=== PATIENT | female | born 1995 | race Caucasian/White ===

== ENCOUNTER 2019-10-17 19:10 | Observation (INO) | payer SELFPAY ==
--- NOTE | 2019-10-17 19:50 | ER Document Report ---
ED Medical Screen (RME) - General Chief Complaint: Back Pain Stated Complaint: BACK MUSCLE PAIN Time Seen by Provider: 10/17/19 19:43 Mode of Arrival: Ambulatory Information source: Patient Notes: 23-year-old female presented to ED for complaint of right upper back and abdomen pain. She states it started a couple days ago but is worse today. She states is worse whenever she eats or drinks. She states when she eats or drinks it makes her to get very nauseated. She is taking testosterone and took an injection today for gender transition process. She does not smoke drink or use any drugs. Last menstrual period was September 25. No past medical history. I have greeted and performed a rapid initial assessment of this patient. A comprehensive ED assessment and evaluation of the patient, analysis of test results and completion of medical decision making process will be conducted by an additional ED providers. TRAVEL OUTSIDE OF THE [place] IN LAST 30 DAYS: No - Related Data Allergies/Adverse Reactions: No Known Allergies Allergy (Unverified 12/18/15 20:38) Physical Exam - Vital signs Vitals: Temp Pulse Resp BP Pulse Ox 99.0 F 64 16 127/70 H 99 10/17/19 19:22 10/17/19 19:22 10/17/19 19:22 10/17/19 19:22 10/17/19 19:22 Course - Vital Signs Vital signs: Temp Pulse Resp BP Pulse Ox 99.0 F 64 16 127/70 H 99 10/17/19 19:22 10/17/19 19:22 10/17/19 19:22 10/17/19 19:22 10/17/19 19:22
[2019-10-17 20:26] LABS: ABSOLUTE BASOPHILS # (AUTO) 0.1 10^3/uL (0.0-0.2); ABSOLUTE EOSINOPHILS # (AUTO) 0.1 10^3/uL (0.0-0.6); ABSOLUTE LYMPHOCYTES (AUTO) 1.1 10^3/uL (0.5-4.7); ABSOLUTE MONOCYTES (AUTO) 0.6 10^3/uL (0.1-1.4); ABSOLUTE NEUT (AUTO) 6.1 10^3/uL (1.7-8.2); BASOPHILS % (AUTO) 0.7 % (0-2); EOSINOPHILS % (AUTO) 0.6 % (0-6); HEMATOCRIT 43.3 % (36.0-47.0); HEMOGLOBIN 14.3 g/dL (12.0-15.5); LYMPHOCYTES % (AUTO) 13.6 % (13-45); MEAN CORPUSCULAR HEMOGLOBIN 27.8 pg (27.0-33.4); MEAN CORPUSCULAR HGB CONC 33.1 g/dL (32.0-36.0); MEAN CORPUSCULAR VOLUME 84 fl (80-97); MONOCYTES % (AUTO) 7.7 % (3-13); PLATELET COUNT 149 10^3/uL (150-450); RED BLOOD COUNT 5.15 10^6/uL (3.72-5.28); RED CELL DISTRIBUTION WIDTH 15.7 % (11.5-14.0); SEGMENTED NEUTROPHILS % (AUTO) 77.4 % (42-78); TOTAL CELLS COUNTED % (AUTO) 100 %; WHITE BLOOD COUNT 7.9 10^3/uL (4.0-10.5)
[2019-10-17 20:39] LABS: APPEARANCE,URINE CLEAR; BILIRUBIN,URINE NEGATIVE (NEGATIVE); COLOR,URINE AMBER; GLUCOSE, URINE NEGATIVE (NEGATIVE); KETONES,URINE NEGATIVE (NEGATIVE); LEUKOCYTE ESTERASE,URINE TRACE (NEGATIVE); NITRITE,URINE NEGATIVE (NEGATIVE); PROTEIN,URINE 100 mg/dL (NEGATIVE); URINE SPECIFIC GRAVITY 1.025
[2019-10-17 20:47] LABS: ALBUMIN 4.9 g/dL (3.5-5.0); ALKALINE PHOSPHATASE 113 U/L (38-126); ANION GAP 8 (5-19); ASPARTATE AMINO TRANSFERASE 265 U/L (14-36); BILIRUBIN,DIRECT 0.5 mg/dL (0.0-0.4); BILIRUBIN,TOTAL 1.2 mg/dL (0.2-1.3); BLOOD UREA NITROGEN 6 mg/dL (7-20); CALCIUM 9.6 mg/dL (8.4-10.2); CARBON DIOXIDE 27 mmol/L (22-30); CHLORIDE 104 mmol/L (98-107); CREATINE KINASE 139 U/L (30-135); GLUCOSE 98 mg/dL (75-110); TOTAL PROTEIN 8.3 g/dL (6.3-8.2)
--- NOTE | 2019-10-18 04:10 | RADIOLOGY REPORT (SQ) ---
Ultrasound of the right upper quadrant of the abdomen: 10/18/2019 3:08 AM CDT Technique: Multiple grayscale color Doppler images of the right upper quadrant of the abdomen were obtained. Comparison: None available History: 23-year old patient with right upper quadrant abdominal pain. Findings: The visualized portions of the hepatic parenchyma appear normal. There is normal directional flow seen within the main portal vein. Cholelithiasis with nonspecific gallbladder wall thickening is seen. Sonographic Hinojosa's sign was negative. The common duct measures 2.0 mm. The right kidney measures up to 10.9 cm in length. The right kidney demonstrates normal cortical echogenicity with no evidence to suggest hydronephrosis. The visualized portions of the IVC, abdominal aorta, and pancreatic head appear normal. No free intraperitoneal fluid is seen. Impression: There is nonspecific gallbladder wall thickening with cholelithiasis. Sonographic Hinojosa's sign was negative.
--- NOTE | 2019-10-18 04:11 | ER Document Report ---
ED General - General Chief Complaint: Abdominal Pain Stated Complaint: BACK MUSCLE PAIN Time Seen by Provider: 10/17/19 19:43 Mode of Arrival: Ambulatory TRAVEL OUTSIDE OF THE [place] IN LAST 30 DAYS: No - HPI Notes: 23-year-old transgender male (chosen name is Kash) on testosterone therapy with any other significant medical history presents with approximately 1 week of gradual onset worsening severe right upper quadrant pain radiating to right back precipitated by eating especially fatty foods but now brought on by eating any food or drinking water causes severe pain for hours. Pain associated with several episodes of nonbloody nonbilious emesis. Patient denies any fever, lower abdominal pain, trauma, urinary symptoms, vaginal symptoms, prior episodes prior to this week, prior medical eval - Related Data Allergies/Adverse Reactions: No Known Allergies Allergy (Unverified 12/18/15 20:38) Home Medications: testerone Past Medical History - General Information source: Patient - Social History Smoking Status: Never Smoker Family History: Reviewed & Not Pertinent Patient has homicidal ideation: No Review of Systems - Review of Systems Notes: REVIEW OF SYSTEMS: CONSTITUTIONAL : Denies fever, chills, or sweats. EENT: Denies recent cold/sinus symptoms, denies throat pain CARDIOVASCULAR: Denies chest pain, LATIA RESPIRATORY: Denies cough, denies shortness of breath. GASTROINTESTINAL: +abdominal pain, +nausea/vomiting. GENITOURINARY: Denies difficulty urinating, painful urination. FEMALE GENITOURINARY: Denies abnormal vaginal bleeding, vaginal discharge. MUSCULOSKELETAL: Denies neck pain, back pain. SKIN: Denies rash or skin lesions. HEMATOLOGIC : Denies easy bruising or bleeding. LYMPHATIC: Denies swollen, enlarged glands. NEUROLOGICAL: Denies headache, denies change in gait. PSYCHIATRIC: Denies anxiety or stress or depression. Physical Exam - Vital signs Vitals: Temp Pulse Resp BP Pulse Ox 99.0 F 64 16 127/70 H 99 10/17/19 19:22 10/17/19 19:22 10/17/19 19:22 10/17/19 19:22 10/17/19 19:22 - Notes Notes: PHYSICAL EXAMINATION: GENERAL: Well-appearing, well-nourished and in no acute distress. HEAD: Atraumatic, normocephalic. EYES: Pupils equal round and appropriate constriction, sclera anicteric, conjunc tiva are normal. ENT: nares patent, moist mucous membranes. NECK: Normal range of motion, supple without lymphadenopathy LUNGS: Breath sounds clear to auscultation bilaterally and equal. No wheezes rales or rhonchi. HEART: Regular rate and rhythm without murmurs ABDOMEN: Soft, nontender, no guarding, no masses, no CVAT, endorses area of pain being at Hinojosa's point EXTREMITIES: Normal range of motion, no pitting or edema. No cyanosis. NEUROLOGICAL: Awake, alert, conversing appropriately, moves all extremities spontaneously. PSYCH: Normal mood, normal affect. SKIN: Warm, Dry, normal turgor, no rashes or lesions noted. Course - Re-evaluation Re-evalutation: 10/18/19 05:14 Symptoms consistent with highly symptomatic biliary colic. Labs us obtained to rule out cholecystitis/choledocholithiasis. Ultrasound showed no CBD measurement but positive for cholelithiasis and gallbladder thickening. Labs significant for transaminitis. Given patient being severely symptomatic discussed case with surgeon who is accepted patient to his service. Patient has been made n.p.o. and preop labs ordered. Patient currently asymptomatic. - Vital Signs Vital signs: Temp Pulse Resp BP Pulse Ox 99.0 F 64 16 127/70 H 99 10/17/19 19:22 10/17/19 19:22 10/17/19 19:22 10/17/19 19:22 10/17/19 19:22 - Laboratory Result Diagrams: 10/17/19 20:08 10/17/19 20:08 Laboratory results interpreted by me: 10/17/19 10/17/19 10/17/19 20:08 20:08 20:08 RDW 15.7 H Plt Count 149 L BUN 6 L Direct Bilirubin 0.5 H AST 265 H ALT 143 H Creatine Kinase 139 H Total Protein 8.3 H Urine Protein 100 H Urine Urobilinogen 4.0 H Ur Leukocyte Esterase TRACE H Discharge - Discharge Clinical Impression: Recurrent biliary colic, Transaminitis Disposition: ADMITTED INPATIENT Admitting Provider: Surgicalist - [facility] Admitted: Surgical Floor
[2019-10-18] MEDS ORDERED: RINGERS SOLUTION,LACTATED 1,000 ML IV ONE (04:34)
[2019-10-18] MEDS ORDERED: ONDANSETRON HCL INJ/PF 4 MG/2 ML SDV IV PRN (04:35)
[2019-10-18] MEDS ORDERED: MORPHINE SULFATE 10 MG/ML INJ IV PRN ×2 (04:35→18:00)
[2019-10-18] MEDS ORDERED: PIPERACILLIN/TAZOBACTAM 3.375 GM VIAL IV ONE (06:00)
[2019-10-18] MEDS: PIPERACILLIN SODIUM/TAZOBACTAM 3.375 GM in NORMAL SALINE 100 ML IV SCH ×3 (06:18→19:37)
[2019-10-18] MEDS: KETOROLAC TROMETHAMINE INJ/PF 30 MG/1 ML SDV IV PRN ×2 (06:21→19:36)
--- NOTE | 2019-10-18 06:35 | PDOC H&P ---
History of Present Illness Admission Date/PCP: 10/18/19 05:22 Patient complains of: RUQ and back pain History of Present Illness: SELVIN BELTRAN is a 23 year old female with a one-week history of intermittent right upper quadrant and back pain. Her pain is exacerbated by the ingestion of fatty foods. She reports pain with cheese, milk, ice cream, pizza, and buffalo wings. The patient reports nausea and vomiting. At its worst, her pain is 9 out of 10. The pain waxes and wanes. The pain radiates into her back and right shoulder. She denies any history of hepatitis, IV drug abuse, excessive NSAID use, or peptic ulcer disease. She also denies chest pain, shortness of breath, fevers, chills, headache, dizziness, melena, hematochezia, hematemesis, blurry vision, orthostasis. Past Medical History Medical History: None Past Surgical History Past Surgical History: Reports: Other - Rectal repair after trauma as a child Social History Smoking Status: Never Smoker Frequency of Alcohol Use: Occasional Hx Recreational Drug Use: No Hx Prescription Drug Abuse: No Family History Family History: Reviewed & Not Pertinent Parental Family History Reviewed: Yes Children Family History Reviewed: Yes Sibling(s) Family History Reviewed.: Yes Medication/Allergy Home Medications: Trazodone HCl 50 mg PO QHS #30 tablet 12/03/15 Allergies/Adverse Reactions: No Known Allergies Allergy (Unverified 12/18/15 20:38) Review of Systems Constitutional: ABSENT: anorexia, chills, fatigue Eyes: ABSENT: visual disturbances Ears: ABSENT: hearing changes Nose, Mouth, and Throat: ABSENT: sore throat Cardiovascular: ABSENT: chest pain Respiratory: ABSENT: cough, dyspnea Gastrointestinal: PRESENT: abdominal pain, nausea, vomiting. ABSENT: hematemesis, hematochezia, melena Genitourinary: ABSENT: dysuria Musculoskeletal: ABSENT: deformity Integumentary: ABSENT: pruritus, rash Neurological: ABSENT: confusion, convulsions, dizziness Psychiatric: ABSENT: anxiety, depression Endocrine: ABSENT: cold intolerance, heat intolerance Hematologic/Lymphatic: ABSENT: easy bleeding, easy bruising Physical Exam Vital Signs: Temp Pulse Resp BP Pulse Ox 99.0 F 64 16 127/70 H 99 10/17/19 19:22 10/17/19 19:22 10/17/19 19:22 10/17/19 19:22 10/17/19 19:22 Intake & Output 10/16/19 10/17/19 10/18/19 06:59 06:59 06:59 Weight 77.5 kg General appearance: PRESENT: no acute distress, cooperative Head exam: PRESENT: atraumatic, normocephalic Eye exam: PRESENT: EOMI, PERRLA. ABSENT: scleral icterus Mouth exam: PRESENT: moist, neck supple Neck exam: ABSENT: meningismus, tenderness, thyromegaly, tracheal deviation Respiratory exam: PRESENT: unlabored. ABSENT: tachypnea, wheezes Cardiovascular exam: ABSENT: tachycardia Pulses: PRESENT: normal radial pulses Vascular exam: PRESENT: normal capillary refill GI/Abdominal exam: PRESENT: soft, tenderness - Right upper quadrant. ABSENT: distended, guarding, rigid Rectal exam: PRESENT: deferred Extremities exam: ABSENT: clubbing Musculoskeletal exam: ABSENT: deformity Neurological exam: PRESENT: alert, awake, oriented to person, oriented to place, oriented to time, oriented to situation, CN II-XII grossly intact. ABSENT: motor sensory deficit Psychiatric exam: ABSENT: agitated, anxious, depressed Focused psych exam: ABSENT: delusional Skin exam: ABSENT: cyanosis, erythema, jaundice Results Laboratory Results: 10/17/19 20:08 10/17/19 20:08 10/17/19 10/17/19 10/17/19 20:08 20:08 20:08 WBC 7.9 RBC 5.15 Hgb 14.3 Hct 43.3 MCV 84 MCH 27.8 MCHC 33.1 RDW 15.7 H Plt Count 149 L Seg Neutrophils % 77.4 Sodium 138.5 Potassium 4.0 Chloride 104 Carbon Dioxide 27 Anion Gap 8 BUN 6 L Creatinine 0.82 Est GFR ( Amer) > 60 Glucose 98 Calcium 9.6 Total Bilirubin 1.2 AST 265 H Alkaline Phosphatase 113 Total Protein 8.3 H Albumin 4.9 Lipase 120.0 Serum HCG, Qual NEGATIVE Urine Color Urine Appearance Urine pH Ur Specific [place] Urine Protein Urine Glucose (UA) Urine Ketones Urine Blood Urine Nitrite Ur Leukocyte Esterase Urine WBC (Auto) Urine RBC (Auto) 10/17/19 20:08 WBC RBC Hgb Hct MCV MCH MCHC RDW Plt Count Seg Neutrophils % Sodium Potassium Chloride Carbon Dioxide Anion Gap BUN Creatinine Est GFR ( Amer) Glucose Calcium Total Bilirubin AST Alkaline Phosphatase Total Protein Albumin Lipase Serum HCG, Qual Urine Color ROMEO Urine Appearance CLEAR Urine pH 8.0 Ur Specific [place] 1.025 Urine Protein 100 H Urine Glucose (UA) NEGATIVE Urine Ketones NEGATIVE Urine Blood NEGATIVE Urine Nitrite NEGATIVE Ur Leukocyte Esterase TRACE H Urine WBC (Auto) 2 Urine RBC (Auto) 2 10/17/19 20:08 Creatine Kinase 139 H Assessment & Plan - Diagnosis (1) Acute cholecystitis Is this a current diagnosis for this admission?: Yes - Plan Summary Plan Summary: This is a 23-year-old female with a history, physical examination, and gallbladder ultrasound consistent with acute cholecystitis. She has tenderness in her right upper quadrant, fatty food intolerance, and gallbladder wall thickening on ultrasound. I believe the patient is experiencing cholecystitis. I have offered her cholecystectomy as treatment. She has agreed to this. Ris ks/benefits discussed, informed consent obtained, and all questions answered.
[2019-10-18 07:03] LABS: INTERNATIONAL RATION (INR) 1.06; PARTIAL THROMBOPLASTIN TIME 30.9 SEC (23.5-35.8); PROTHROMBIN TIME 13.8 SEC (11.4-15.4)
[2019-10-18] MEDS ORDERED: ROCURONIUM BROMIDE INJ 50 MG/5 ML VIAL IV ONE (08:37)
[2019-10-18] MEDS ORDERED: NEOSTIGMINE METHYLSULFATE 10 MG/10 ML VIAL ONE (08:37)
[2019-10-18] MEDS ORDERED: GLYCOPYRROLATE 1 MG/5 ML VIAL ONE (08:37)
[2019-10-18] MEDS ORDERED: SUCCINYLCHOLINE CHLORIDE INJ 200 MG/10 ML VIAL ONE (08:37)
[2019-10-18] MEDS: DEXTROSE 5%-LACTATED RINGERS 1,000 ML IV PRN ×2 (11:17→19:36)
[2019-10-18] MEDS ORDERED: BUPIVACAINE HCL 0.25 % INJ/PF (2.5 MG/1 ML) 30 ML VIAL ONE (15:08)
[2019-10-18] MEDS ORDERED: MIDAZOLAM 2 MG/2 ML INJ ONE (16:28)
[2019-10-18] MEDS ORDERED: KETOROLAC TROMETHAMINE 60 MG/2 ML SDV ONE (16:28)
[2019-10-18] MEDS ORDERED: FENTANYL CITRATE INJ/PF 100 MCG/2 ML AMPUL ONE (16:28)
[2019-10-18] MEDS ORDERED: DEXAMETHASONE SOD PHOSPHATE INJ 4 MG/1 ML VIAL ONE (16:29)
[2019-10-18] MEDS ORDERED: ONDANSETRON HCL INJ/PF 4 MG/2 ML SDV ONE (16:29)
[2019-10-18] MEDS ORDERED: PROPOFOL INJ 200 MG/20 ML VIAL IV ONE (16:29)
[2019-10-18] MEDS ORDERED: DIPHENHYDRAMINE HCL 50 MG/ML VIAL IV PRN (18:00)
[2019-10-18] MEDS ORDERED: MEPERIDINE HCL/PF INJ 25 MG/1 ML DISP.SYRIN IV PRN (18:00)
[2019-10-18] MEDS ORDERED: PROMETHAZINE HCL INJ 25 MG/1 ML VIAL IV PRN (18:00)
[2019-10-18] MEDS ORDERED: FENTANYL CITRATE INJ/PF 100 MCG/2 ML AMPUL IV PRN ×3 (18:00)
--- NOTE | 2019-10-18 18:04 | Operative Report ---
Operative Report DATE OF SURGERY: 10/18/19 PREOPERATIVE DIAGNOSIS: Symptomatic cholelithiasis with cholecystitis POSTOPERATIVE DIAGNOSIS: Same OPERATION: Laparoscopic cholecystectomy SURGEON: RASHAD PELLETIER ANESTHESIA: GA TISSUE REMOVED OR ALTERED: 1 gallbladder with contents COMPLICATIONS: None ESTIMATED BLOOD LOSS: Scant INTRAOPERATIVE FINDINGS: See below PROCEDURE: The patient was taken to the preoperative main operating room where general anesthesia was induced. Arms were abducted, abdomen clipped of hair, prepped with Betadine, and draped combination to sitter for laparoscopic cholecystectomy. Surgical plan and surgical timeout conducted. Markings were made on the skin for for port laparoscopy. All sites were anesthetized with 1% plain lidocaine. A vertical incision was made above the umbilicus with #15 blade, a Veress needle was inserted into the peritoneal cavity and pneumoperitoneum was established. Veress needle was removed, and a 5 mm port was inserted and a 5 mm flexible scope was inserted. Visualization of the peritoneal cavity revealed no evidence of vascular or visceral injury. Under direct visualization 3 additional ports were placed, one in the subxiphoid position, 2 in the subcostal position. The findings were significant for a gallbladder with a thickened wall and distention. The gallbladder was aspirated of approximately 60 cc of bile. Graspers were placed and the gallbladder was reflected up over the liver bed. The neck of the gallbladder at its junction with the cystic duct was dissected out. The peritoneal reflection was opened with electrocautery very carefully. Anatomy here was typical. The cystic duct was dissected out, as was the triangle of calot, now revealing the critical view. We got on both right and left sides of the junction between the gallbladder, cystic duct, and the liver plate. Photos were taken. The cystic duct was clipped 3 times proximally, 1 time distally, divided with scissors. Slightly medial to this was the cystic artery dominant branch. It was clipped twice proximally once distally and divided with scissors. The gallbladder was now removed from the liver bed using hook cautery dissection. The gallbladder was freed up, and brought out of the patient to the supraumbilical port site without spillage of stones. We returned to the peritoneal cavity, checked for bleeding, and there was none. The patient was leveled out and minimal amount of bile around the liver was irrigated and aspirated. Sponge and needle counts are correct. At this point felt the operation was complete. All ports removed under direct visualization, pneumoperitoneum was evacuated, and all wounds closed with 3-0 Vicryl benzoin and Steri-Strips. Patient tolerated procedure well, extubated, taken recovery in stable condition.
[2019-10-19] MEDS: PIPERACILLIN SODIUM/TAZOBACTAM 3.375 GM in NORMAL SALINE 100 ML IV SCH ×2 (01:30→06:20)
[2019-10-19 07:34] LABS: ALBUMIN 3.6 g/dL (3.5-5.0); ALKALINE PHOSPHATASE 112 U/L (38-126); ASPARTATE AMINO TRANSFERASE 131 U/L (14-36); BILIRUBIN,DIRECT 0.2 mg/dL (0.0-0.4); BILIRUBIN,TOTAL 1.2 mg/dL (0.2-1.3)
[2019-10-19 07:51] VITALS: BP 120/59
--- NOTE | 2019-10-19 08:47 | PDOC DISCHARGE SUMMARY ---
General - Admit/Disc Date/PCP Admission Date/Primary Care Provider: 10/18/19 05:22 Discharge Date: 10/19/19 - Discharge Diagnosis Final Diagnosis: Acute cholecystitis - Assessment Summary: This is a 23-year-old female admitted with acute cholecystitis. The patient underwent laparoscopic cholecystectomy yesterday. Today she is feeling well. She is eating without difficulty. She is ambulating. She is afebrile. At this time, it is felt that she has reached maximal hospital benefit and is fit for discharge. - Additional Information Resuscitation Status: Full Code Discharge Diet: As Tolerated Discharge Activity: No Lifting Over 10 Pounds, No Lifting/Push/Pulling Prescriptions: Hydrocodone/Acetaminophen [Costa 10-325 mg Tablet] 1 tab PO Q6HP PRN #14 tablet PRN Reason: For Pain Home Medications: Testosterone Cypionate [Depo-Testosterone] 25 mg IM TH 10/18/19 Hydrocodone/Acetaminophen [Costa 10-325 mg Tablet] 1 tab PO Q6HP PRN #14 tablet 10/19/19 Additional Information: Discharge home. Diet as tolerated. Activity: No lifting more than 10 pounds x 2 weeks. Okay to shower starting tomorrow. No tub baths or swimming pools x2 weeks. Costa 10/325 mg p.o. every 6 hours as needed for pain. Follow-up with [facility] in 7 to 10 days. History of Present Illiness History of Present Illness: SELVIN BELTRAN is a 23 year old female with a one-week history of intermittent right upper quadrant and back pain. Her pain is exacerbated by the ingestion of fatty foods. She reports pain with cheese, milk, ice cream, pizza, and buffalo wings. The patient reports nausea and vomiting. At its worst, her pain is 9 out of 10. The pain waxes and wanes. The pain radiates into her back and right shoulder. She denies any history of hepatitis, IV drug abuse, excessive NSAID use, or peptic ulcer disease. She also denies chest pain, shortness of breath, fevers, chills, headache, dizziness, melena, hematochezia, hematemesis, blurry vision, orthostasis. Physical Exam Vital Signs: Temp Pulse Resp BP Pulse Ox 98.1 F 50 L 18 120/59 L 100 10/19/19 07:41 10/19/19 07:41 10/19/19 07:41 10/19/19 07:41 10/19/19 07:41 Intake & Output 10/18/19 10/19/19 10/20/19 06:59 06:59 06:59 Intake Total 3050 1100 Output Total 1105 Balance 1944 1100 Weight 77.5 kg 77.5 kg Results Laboratory Results: WBC 7.9 10^3/uL (4.0-10.5) 10/17/19 20:08 RBC 5.15 10^6/uL (3.72-5.28) 10/17/19 20:08 Hgb 14.3 g/dL (12.0-15.5) 10/17/19 20:08 Hct 43.3 % (36.0-47.0) 10/17/19 20:08 MCV 84 fl (80-97) 10/17/19 20:08 MCH 27.8 pg (27.0-33.4) 10/17/19 20:08 MCHC 33.1 g/dL (32.0-36.0) 10/17/19 20:08 RDW 15.7 % (11.5-14.0) H 10/17/19 20:08 Plt Count 149 10^3/uL (150-450) L 10/17/19 20:08 Lymph % (Auto) 13.6 % (13-45) 10/17/19 20:08 [place] % (Auto) 7.7 % (3-13) 10/17/19 20:08 Eos % (Auto) 0.6 % (0-6) 10/17/19 20:08 Baso % (Auto) 0.7 % (0-2) 10/17/19 20:08 Absolute Neuts (auto) 6.1 10^3/uL (1.7-8.2) 10/17/19 20:08 Absolute Lymphs (auto) 1.1 10^3/uL (0.5-4.7) 10/17/19 20:08 Absolute Monos (auto) 0.6 10^3/uL (0.1-1.4) 10/17/19 20:08 Absolute Eos (auto) 0.1 10^3/uL (0.0-0.6) 10/17/19 20:08 Absolute Basos (auto) 0.1 10^3/uL (0.0-0.2) 10/17/19 20:08 Seg Neutrophils % 77.4 % (42-78) 10/17/19 20:08 PT 13.8 SEC (11.4-15.4) 10/18/19 06:42 INR 1.06 10/18/19 06:42 INR (Anticoag Therapy) Cancelled 10/18/19 05:47 APTT 30.9 SEC (23.5-35.8) 10/18/19 06:42 Sodium 138.5 mmol/L (137-145) 10/17/19 20:08 Potassium 4.0 mmol/L (3.6-5.0) 10/17/19 20:08 Chloride 104 mmol/L (98-107) 10/17/19 20:08 Carbon Dioxide 27 mmol/L (22-30) 10/17/19 20:08 Anion Gap 8 (5-19) 10/17/19 20:08 BUN 6 mg/dL (7-20) L 10/17/19 20:08 Creatinine 0.82 mg/dL (0.52-1.25) 10/17/19 20:08 Est GFR ( Amer) > 60 (>60) 10/17/19 20:08 Est GFR (MDRD) Non-Af > 60 (>60) 10/17/19 20:08 Glucose 98 mg/dL (75-110) 10/17/19 20:08 Calcium 9.6 mg/dL (8.4-10.2) 10/17/19 20:08 Total Bilirubin 1.2 mg/dL (0.2-1.3) 10/19/19 06:59 Direct Bilirubin 0.2 mg/dL (0.0-0.4) 10/19/19 06:59 Neonat Total Bilirubin Not Reportable 10/19/19 06:59 Neonat Direct Bilirubin Not Reportable 10/19/19 06:59 Neonat Indirect Bili Not Reportable 10/19/19 06:59 AST 131 U/L (14-36) H 10/19/19 06:59 ALT 208 U/L (<35) H 10/19/19 06:59 Alkaline Phosphatase 112 U/L (38-126) 10/19/19 06:59 Creatine Kinase 139 U/L (30-135) H 10/17/19 20:08 Total Protein 6.0 g/dL (6.3-8.2) L 10/19/19 06:59 Albumin 3.6 g/dL (3.5-5.0) 10/19/19 06:59 Lipase 120.0 U/L (23-300) 10/17/19 20:08 Serum HCG, Qual NEGATIVE (NEGATIVE) 10/17/19 20:08 Urine Color ROMEO 10/17/19 20:08 Urine Appearance CLEAR 10/17/19 20:08 Urine pH 8.0 (5.0-9.0) 10/17/19 20:08 Ur Specific [place] 1.025 10/17/19 20:08 Urine Protein 100 mg/dL (NEGATIVE) H 10/17/19 20:08 Urine Glucose (UA) NEGATIVE mg/dL (NEGATIVE) 10/17/19 20:08 Urine Ketones NEGATIVE mg/dL (NEGATIVE) 10/17/19 20:08 Urine Blood NEGATIVE (NEGATIVE) 10/17/19 20:08 Urine Nitrite NEGATIVE (NEGATIVE) 10/17/19 20:08 Urine Bilirubin NEGATIVE (NEGATIVE) 10/17/19 20:08 Urine Urobilinogen 4.0 mg/dL (<2.0) H 10/17/19 20:08 Ur Leukocyte Esterase TRACE (NEGATIVE) H 10/17/19 20:08 Urine WBC (Auto) 2 /HPF 10/17/19 20:08 Urine RBC (Auto) 2 /HPF 10/17/19 20:08 Squamous Epi Cells Auto 1 /HPF 10/17/19 20:08 Urine Mucus (Auto) OCC /LPF 10/17/19 20:08 Urine Ascorbic Acid NEGATIVE (NEGATIVE) 10/17/19 20:08 SARS-CoV-2 (PCR) NEGATIVE (NEGATIVE) 10/18/19 06:44 Blood Type A POSITIVE 10/18/19 06:42 Antibody Screen NEGATIVE 10/18/19 06:42
[2019-10-19] MEDS: KETOROLAC TROMETHAMINE INJ/PF 30 MG/1 ML SDV IV PRN (09:54)
[2019-10-19] MEDS ORDERED: DOCUSATE SODIUM 100 MG CAPSULE PO SCH (10:00)
== END 2019-10-19 11:05 | disposition home or self-care (01) ==
LOC: ER 19:10 → INTOOBSV 10-18 05:22 → EH 10-18 05:22 → 2N 10-18 08:00
PROVIDERS: ATTEND Surgery
DX: K80.10 Calculus of gallbladder with chronic cholecystitis without obstruction (principal); Z03.818 Encounter for observation for suspected exposure to other biological agents ruled out; F64.8 Other gender identity disorders; R74.0 Nonspecific elevation of levels of transaminase and lactic acid dehydrogenase [LDH]; Z79.890 Hormone replacement therapy
CPT/HCPCS: 47562; 99285; 86900; 86901; 36415 ×3; 87086; 86850; 82550; 83690; 84703; 85025; 85610; 85730; 87635; 80076; 80053; 81001; 88304 ×2; 76705; 99140; 00790; G0378 ×3; J2250; J3490 ×2; J1100; J1885 ×3; J3010; J2270; J2710; J0330; J2405; J7121; J7050 ×2; J7120; J2704; J2543 ×2; C9803; 790